=== PATIENT | male | born 1950 | race Caucasian/White ===

== ENCOUNTER → 2017-12-14 | Outpatient (CLI) | payer MEDICARE | END | disposition home or self-care (01) | LOC: PCVCCLINIC 12:00 | PROVIDERS: ATTEND Internal Medicine | DX: I25.10 Atherosclerotic heart disease of native coronary artery without angina pectoris (principal); E78.5 Hyperlipidemia, unspecified; R73.02 Impaired glucose tolerance (oral); Z87.891 Personal history of nicotine dependence; Z79.82 Long term (current) use of aspirin | CPT/HCPCS: 80061; 93005; G0463 ==

== ENCOUNTER → 2018-11-17 | Outpatient (CLI) | payer MEDICARE | END | disposition home or self-care (01) | LOC: PCVCCLINIC 11:00 | PROVIDERS: ATTEND Internal Medicine | DX: I25.10 Atherosclerotic heart disease of native coronary artery without angina pectoris (principal); E78.5 Hyperlipidemia, unspecified; R73.02 Impaired glucose tolerance (oral); E78.00 Pure hypercholesterolemia, unspecified; I10 Essential (primary) hypertension; Z79.82 Long term (current) use of aspirin; Z87.891 Personal history of nicotine dependence | CPT/HCPCS: 93005; G0463 ==

== ENCOUNTER → 2018-12-23 | Outpatient (CLI) | payer MEDICARE ==
--- NOTE | 2018-12-23 15:47 | PCVCIMAG ---
APPROVED REPORT Study performed: 12/23/2018 11:14:57 Exam: Stress Echocardiogram Indication: CAD , Dyspnea on Exertion Patient Location: Echo lab Stress Nurse: Lorie Liu RN Room #: 1 Status: routine Ht: 5 ft 8 in HR: 62 bpm BP: 122/74 mmHg Rhythm: NSR Medical History Medical History: HTN, Hyperlipidemia Procedure The patient underwent an Exercise Stress Test using the Rafael Protocol. Blood pressure, heart rate, and EKG were monitored. An Echocardiogram was performed by heat treat technician in four stages in quad fashion. At peak stress, four selected images were obtained and placed side by side with resting images for comparison. Stress Test Details Stress Test: Exercise stress testing was performed using a Rafael protocol. HR Resting HR: 62 bpmMax Heart Rate (APMHR): 150 bpm Max HR Achieved: 134 bpmTarget HR (85% APMHR): 127 bpm % of APMHR: 89 Recovery HR: 83 bpm HR response to stress: Normal HR response to stress BP Resting BP: 122/74 mmHg Max BP: 164/80 mmHg Recovery BP: 136/78 mmHg BP response to stress: Normal blood pressure response to stress. ECG Resting ECG: Sinus Rhythm Stress ECG: Sinus Rhythm ST Change: Normal Maximum ST Deviation: 0 mm Arrhythmia: None Recovery ECG: Sinus Rhythm Recovery ST Change: Normal Recovery ST Deviation: 0 mm Recovery Arrhythmia: None Clinical Reason for Termination: Maximal effort, Dyspnea Exercise duration: 10 min 16 sec Highest Stage Achieved: Stage 4: 4.2 mph at 16% grade. Exercise capacity: 13.40 METs Overall Exercise Capacity for Age: Good Angina Score: None Stress ECG Conclusion ECG: Non-ischemic Clinical: Non-ischemic Treadwell Treadmill Score is 10.0 which is Low risk. Pre-Stress Echo The resting Echocardiogram showed normal left ventricular contractility with an estimated Ejection Fraction of about 50-55%. Normal wall motion in all segments on baseline images. Post-Stress Echo The stress Echocardiogram showed normal left ventricular contractility with an estimated Ejection Fraction of about 60-65%. Normal augmentation of wall motion in all segments on post stress images. Clinical No clinical or ECG evidence for ischemia. Conclusion Clinical Response: Non-ischemic Exercise Capacity: Superior Stress ECG Response: Non-ischemic Stress Echo Images: Non-ischemic No clinical, EKG or echocardiographic evidence for ischemia. Normal stress echocardiogram with maximal exercise stress. Doppler and color flow demonstrate trace mitral regurgitation and trace tricuspid regurgitation. Other Information Study Quality: Adequate <Conclusion> No clinical, EKG or echocardiographic evidence for ischemia. Normal stress echocardiogram with maximal exercise stress. Doppler and color flow demonstrate trace mitral regurgitation and trace tricuspid regurgitation.
== END | disposition home or self-care (01) ==
LOC: PCVCIMAG 10:46
PROVIDERS: ATTEND Internal Medicine
DX: I25.10 Atherosclerotic heart disease of native coronary artery without angina pectoris (principal); R73.02 Impaired glucose tolerance (oral); E78.2 Mixed hyperlipidemia; R06.09 Other forms of dyspnea; E78.00 Pure hypercholesterolemia, unspecified; F33.9 Major depressive disorder, recurrent, unspecified
CPT/HCPCS: 93325; 93351